=== PATIENT | female | born 1990 | race Hispanic/Latino ===

== ENCOUNTER → 2022-10-02 08:33 | Outpatient (CLI) | payer MEDICAID, SELFPAY ==
[2022-10-02 20:26] LABS: Add Manual Diff / Slide Review NO; Basophils Absolute Auto 100 /uL (0-100); Basophils Percent Auto 1.2 % (0-2); Eosinophils Absolute Auto 300 /uL (0-450); Eosinophils Percent Auto 2.8 % (2-4); Hematocrit 33.3 % (36-46); Hemoglobin 10.6 g/dL (12.0-16.0); Lymphocytes Absolute Auto 3600 /uL (1100-4500); Mean Corpuscular HGB Conc 31.8 % (30-36); Mean Corpuscular Hemoglobin 24.8 PG (26-34); Monocytes Absolute Auto 700 /uL (0-900); Monocytes Percent Auto 7.8 % (3-14); Neutrophils Absolute Auto 4600 /uL (1500-7000); Neutrophils Percent Auto 49.2 % (50-75); Platelet Count 302 X10^3/uL (150-400); Red Blood Cell Count 4.27 X10^6/uL (4.0-5.2); Red Cell Distribution Width 17.4 % (11.6-14.8); White Blood Cell Count 9.3 X10^3/uL (4.5-11.0)
[2022-10-02 20:39] LABS: Alanine Aminotransferase 21 IU/L (<35); Albumin 4.2 g/dL (3.5-5.0); Albumin Globulin Ratio 1.2 (1.0-2.8); Alkaline Phosphatase 90 U/L (38-126); Aspartate Aminotransferase 20 IU/L (14-36); BUN Creatinine Ratio 24.1 (6-22); Bilirubin Total 0.2 mg/dL (0.2-1.3); Blood Urea Nitrogen 14 mg/dL (7-17); Calcium 8.9 mg/dL (8.4-10.2); Carbon Dioxide 27 mmol/L (22-32); Chloride 102 mmol/L (98-107); Estimated Glomerular Filt Rate > 60 mL/min (>60); Globulin 3.4 g/dL (1.7-4.1); Glucose 94 mg/dL (70-100); HEMOLYSIS < 15 (0-50); Potassium 4.6 mmol/L (3.4-5.1); Sodium 137 mmol/L (137-145); Total Protein 7.6 g/dL (6.3-8.2)
[2022-10-02 21:07] LABS: TSH w/ Reflex to FT4 4.81 uIU/mL (0.47-4.68)
[2022-10-02 23:22] LABS: Free T4, Direct Thyroxine 0.75 ng/dL (0.78-2.19)
[2022-10-03 23:04] LABS: x Labcorp Estim. Avg Glu (eAG) 120 mg/dL (.); x Labcorp Hemoglobin A1c 5.8 % (4.8-5.6)
== END ==
PROVIDERS: PCP Physician Assistant; Visit Provider Physician Assistant
DX: R42 Dizziness and giddiness (principal)
CPT/HCPCS: 80053; 83036; 84439; 84443; 85025

== ENCOUNTER → 2024-02-01 13:55 | Outpatient (CLI) | payer OTHER, SELFPAY ==
[2024-02-01 18:45] LABS: Add Manual Diff / Slide Review NO; Basophils Absolute Auto 100 /uL (0-100); Basophils Percent Auto 0.6 % (0-2); Eosinophils Absolute Auto 100 /uL (0-450); Eosinophils Percent Auto 0.6 % (2-4); Hematocrit 40.1 % (36-46); Hemoglobin 13.4 g/dL (12.0-16.0); Lymphocytes Absolute Auto 3000 /uL (1100-4500); Lymphocytes Percent Auto 30.4 % (25-40); Mean Corpuscular HGB Conc 33.3 % (30-36); Mean Corpuscular Hemoglobin 29.1 PG (26-34); Mean Corpuscular Volume 87.3 fL (80-100); Monocytes Absolute Auto 500 /uL (0-900); Monocytes Percent Auto 5.3 % (3-14); Neutrophils Absolute Auto 6300 /uL (1500-7000); Neutrophils Percent Auto 63.1 % (50-75); Platelet Count 321 X10^3/uL (150-400); Red Blood Cell Count 4.59 X10^6/uL (4.0-5.2); Red Cell Distribution Width 15.9 % (11.6-14.8)
[2024-02-01 19:23] LABS: HEMOLYSIS 16 (0-50)
[2024-02-01 19:28] LABS: Iron 71 ug/dL (37-170)
[2024-02-01 19:38] LABS: Percent Iron Saturation 17 % (15-50); Total Iron Binding Capacity 428 ug/dL (265-497); Transferrin 371 mg/dL (206-381)
[2024-02-01 19:51] LABS: HCG Quantitative /Beta subunit 6410.5 mIU/mL
[2024-02-01 20:01] LABS: TSH w/ Reflex to FT4 2.87 uIU/mL (0.47-4.68)
[2024-02-03 19:12] LABS: Vitamin B12 454 pg/mL (239-931)
== END ==
PROVIDERS: PCP Physician Assistant; Visit Provider Family Medicine
DX: Z34.90 Encounter for supervision of normal pregnancy, unspecified, unspecified trimester (principal); E03.9 Hypothyroidism, unspecified; D64.9 Anemia, unspecified
CPT/HCPCS: 82607; 83540; 83550; 84443; 84702; 85025

== ENCOUNTER → 2024-08-28 09:15 | Outpatient (CLI) | payer MEDICAID, SELFPAY ==
[2024-08-28 19:25] LABS: Add Manual Diff / Slide Review NO; Basophils Absolute Auto 100 /uL (0-100); Basophils Percent Auto 0.6 % (0-2); Eosinophils Absolute Auto 300 /uL (0-450); Eosinophils Percent Auto 3.7 % (2-4); Hematocrit 37.6 % (36-46); Hemoglobin 12.4 g/dL (12.0-16.0); Lymphocytes Absolute Auto 2800 /uL (1100-4500); Lymphocytes Percent Auto 30.6 % (25-40); Mean Corpuscular Hemoglobin 28.1 PG (26-34); Mean Corpuscular Volume 85.2 fL (80-100); Monocytes Absolute Auto 500 /uL (0-900); Monocytes Percent Auto 5.5 % (3-14); Neutrophils Absolute Auto 5400 /uL (1500-7000); Neutrophils Percent Auto 59.6 % (50-75); Platelet Count 313 X10^3/uL (150-400); Red Blood Cell Count 4.41 X10^6/uL (4.0-5.2); Red Cell Distribution Width 15.2 % (11.6-14.8); White Blood Cell Count 9.1 X10^3/uL (4.5-11.0)
[2024-08-28 19:34] LABS: Alanine Aminotransferase 20 IU/L (<35); Albumin 4.2 g/dL (3.5-5.0); Albumin Globulin Ratio 1.3 (1.0-2.8); Alkaline Phosphatase 90 U/L (38-126); Aspartate Aminotransferase 24 IU/L (14-36); BUN Creatinine Ratio 16.9 (6-22); Bilirubin Total 0.5 mg/dL (0.2-1.3); Blood Urea Nitrogen 10 mg/dL (7-17); Calcium 9.5 mg/dL (8.4-10.2); Carbon Dioxide 25 mmol/L (22-32); Chloride 104 mmol/L (98-107); Cholesterol 209 mg/dL (140-199); Estimated Glomerular Filt Rate > 60 mL/min (>60); Globulin 3.3 g/dL (1.7-4.1); Glucose 100 mg/dL (70-100); HDL Cholesterol 67 mg/dL (40-60); HEMOLYSIS < 15 (0-50); LDL Cholesterol Calculated 115 mg/dL (<100); Potassium 4.6 mmol/L (3.4-5.1); Sodium 137 mmol/L (137-145); Total Protein 7.5 g/dL (6.3-8.2); Triglycerides 135 mg/dL (35-150)
[2024-08-28 19:37] LABS: Hemoglobin A1C% w Est Avg Glu 5.3 % (4.0-6.0)
[2024-08-28 20:01] LABS: TSH w/ Reflex to FT4 3.08 uIU/mL (0.47-4.68)
== END ==
PROVIDERS: PCP Physician Assistant; Visit Provider Physician Assistant
DX: Z13.6 Encounter for screening for cardiovascular disorders (principal); R73.9 Hyperglycemia, unspecified; E03.9 Hypothyroidism, unspecified; D64.9 Anemia, unspecified; R11.0 Nausea; R10.9 Unspecified abdominal pain; K59.00 Constipation, unspecified; R63.5 Abnormal weight gain
CPT/HCPCS: 80053; 80061; 83036; 84443; 85025

== ENCOUNTER 2025-05-01 10:27 | Inpatient (IN) | payer MEDICAID, SELFPAY ==
[2025-05-01] VITALS (23 sets, daily range): BP systolic 95–159; BP diastolic 55–82; PULSE 87–155; RESP 13–30; TEMP 36.6–37.1; O2SAT 92–100; BMI 36.2
--- NOTE | 2025-05-01 10:54 | ED_ITS ---
HPI - Abdominal Pain General Chief Complaint: Abdominal Pain Stated Complaint: throwing up for 5 days chest pain from throwing up Time Seen by Provider: 05/01/25 10:43 Source: patient, RN notes reviewed and old records reviewed Mode of arrival: Ambulatory Limitations: no limitations History of Present Illness HPI narrative: 35-year-old female no reported medical issues presents with complaint of epigastric pain with a little bit of heartburn, patient states she has been having intermittent vomiting for the past 5 days typically after she eats something about 30 minutes later she will throat up. She states pain has been intermittent but not persistent. She has felt a little bit bloated. She has had these episodes on and off in the past she saw her primary care physician about it August. She notes she has been constipated she had a bowel movement yesterday that she describes as small but passing flatus regularly. She denies any dysuria, urgency or frequency. Denies any vaginal bleeding or discharge patient does state lying flat makes it worse. Patient states no medical issues, she has had prior x2 no other prior surgeries. No daily medications. No known drug allergies. No tobacco, alcohol or recreational drugs. She presents today she has been having symptoms for the past few days and have not resolved. Related Data Home Medications ?Medication ?Instructions ?Recorded ?Confirmed No Known Home Medications 08/27/2402/12 Allergies Allergy/AdvReac Type Severity Reaction Status Date / Time ondansetron (From Zofran) Allergy Severe Chest Pain Verified 05/01/25 12:13 Review of Systems Review of Systems ROS Unobtainable: All systems reviewed & are unremarkable except as noted in HPI and below Patient History Social History Smoking Status: Never smoker Smoking Status: Never smoker Exam Narrative Exam Narrative: GENERAL: Alert and oriented x three, female in mild distress HEENT: Head normocephalic, atraumatic, EOMI, pupils reactive, face symmetric, moist mucous membranes NECK: Supple, full range of motion CARDIOVASCULAR: Regular rate and rhythm without murmurs, rubs or gallops. RESPIRATORY: Breath sounds equal bilaterally, no wheezes rales or rhonchi. ABDOMEN: Soft, nontender. Nondistended. Normoactive bowel sounds all 4 quadrants. No guarding or rebound, rigidity, no mass, no pulsatile mass. : No CVA tenderness EXTREMITIES: Normal range of motion, no clubbing or edema. Neurovascularly intact NEUROLOGICAL: Cranial nerves II through XII grossly intact. Moving all extremities SKIN: Warm, dry, no petechiae, no rashes or lesions. Initial Vital Signs Initial Vital Signs: Vital Signs Temperature 98.8 F 05/01/25 10:27 Pulse Rate 98 H 05/01/25 10:27 Respiratory Rate 16 05/01/25 10:27 Blood Pressure 121/72 05/01/25 10:27 Pulse Oximetry 98 05/01/25 10:27 Oxygen Delivery Method Room Air 05/01/25 10:27 Course Orders Ordered: ED Orders 05/01/25 11:06 US abdomen limited Stat 05/01/25 11:15 Complete Blood Count AUTO DIFF Stat Comprehensive Metabolic Panel Stat D Dimer Stat Lactate (Lactic Acid) Stat Lipase Stat Procalcitonin Stat Trop I [Troponin I] Stat 05/01/25 11:57 EKG-12 Lead Stat 05/01/25 12:00 Chest [XR chest 1V] Stat 05/01/25 13:25 Troponin I Stat 05/01/25 13:35 Blood Culture Stat Hydromorphone HCl (Hydromorphone Hcl 0.5 Mg/0.5 Ml Syringe) 1 mg IV Q2H PRN PRN Reason: Pain, Severe (7-10) Potassium Chloride 20 meq/ (Dextrose/Sodium Chloride) 1,010 mls @ 100 mls/hr IV CONT DOMENIC Ibuprofen (Ibuprofen 400 Mg Tablet) 400 mg PO Q4H PRN PRN Reason: Pain, Mild (1-3) Naloxone HCl (Naloxone 0.4 Mg/Ml Vial) 0.2 mg IV Q2MIN PRN PRN Reason: Opiate Reversal Oxycodone HCl (Oxycodone Ir 5 Mg Tablet) 5 mg PO Q3H PRN PRN Reason: Pain, Moderate (4-6) Discontinued Medications Magnesium Sulfate (Magnesium Sulfate) 2 gm in 50 mls @ 150 mls/hr IV NOW ONE Stop: 05/01/25 12:15 Last Infusion: 05/01/25 12:42 Dose: Infused Documented By: JE Co-signed By: CHUY Admin: 05/01/25 11:59 Dose: 150 mls/hr Documented By: RLDayron Co-signed By: PRERNA Sodium Chloride (Normal Saline 0.9%) 1,000 mls @ 1,000 mls/hr IV BOLUS ONE Stop: 05/01/25 12:55 Last Infusion: 05/01/25 12:50 Dose: Infused Documented By: Admin: 05/01/25 12:02 Dose: 1,000 mls/hr Documented By: RLC Sodium Chloride (Normal Saline 0.9%) 1,000 mls @ 1,000 mls/hr IV BOLUS ONE Stop: 05/01/25 13:47 Last Infusion: 05/01/25 13:40 Dose: Infused Documented By: Admin: 05/01/25 12:51 Dose: 1,000 mls/hr Documented By: RLC Piperacillin Sod/Tazobactam (Sod 4.5 gm/ Sodium Chloride) 100 mls @ 200 mls/hr IV NOW ONE Stop: 05/01/25 13:16 Last Infusion: 05/01/25 14:12 Dose: Infused Documented By: Admin: 05/01/25 13:31 Dose: 200 mls/hr Documented By: C Lorazepam (Lorazepam 2 Mg/Ml Inj) 0.5 mg IV NOW ONE Stop: 05/01/25 12:15 Last Admin: 05/01/25 12:26 Dose: 0.5 mg Documented By: C Methylprednisolone (Methylprednisolone Succ 125 Mg/2 Ml Vial) 125 mg IV NOW ONE Stop: 05/01/25 12:02 Last Admin: 05/01/25 12:25 Dose: 125 mg Documented By: RLC Morphine Sulfate (Morphine 4 Mg/Ml Inj) 4 mg IV NOW ONE Stop: 05/01/25 13:07 Last Admin: 05/01/25 13:10 Dose: 4 mg Documented By: RLC Ondansetron HCl (Ondansetron 4 Mg/2 Ml Inj) 4 mg IV NOW ONE Stop: 05/01/25 11:07 Last Admin: 05/01/25 11:45 Dose: 4 mg Documented By: RLC Pantoprazole Sodium (Pantoprazole 40 Mg Vial) 40 mg IV NOW ONE Stop: 05/01/25 11:07 Last Admin: 05/01/25 11:47 Dose: 40 mg Documented By: [facility] Vital Signs Vital signs: Vital Signs - 8 hr 05/01/25 10:27 05/01/25 11:41 05/01/25 11:45 Temperature 98.8 F Pulse Rate 98 H 87 Respiratory Rate 16 Blood Pressure 121/72 113/67 Pulse Oximetry 98 99 Oxygen Delivery Method Room Air 05/01/25 11:45 05/01/25 11:55 05/01/25 12:00 Temperature Pulse Rate 93 H 155 H 143 H Respiratory Rate 28 H 30 H Blood Pressure Pulse Oximetry 99 96 100 Oxygen Delivery Method Room Air 05/01/25 12:01 05/01/25 12:01 05/01/25 12:10 Temperature Pulse Rate 142 H Respiratory Rate 27 H Blood Pressure 154/81 H 159/82 H Pulse Oximetry 100 Oxygen Delivery Method 05/01/25 12:10 05/01/25 12:15 05/01/25 12:15 Temperature Pulse Rate 132 H 139 H Respiratory Rate 30 H 29 H Blood Pressure 154/74 H Pulse Oximetry 100 100 Oxygen Delivery Method 05/01/25 12:30 05/01/25 12:30 05/01/25 12:45 Temperature Pulse Rate 132 H Respiratory Rate 18 Blood Pressure 137/76 128/60 Pulse Oximetry 92 Oxygen Delivery Method 05/01/25 12:45 05/01/25 13:00 05/01/25 13:00 Temperature Pulse Rate 140 H 129 H Respiratory Rate 13 19 Blood Pressure 120/68 Pulse Oximetry 99 99 Oxygen Delivery Method 05/01/25 13:15 05/01/25 13:15 Temperature Pulse Rate 126 H Respiratory Rate 22 Blood Pressure 121/60 Pulse Oximetry 99 Oxygen Delivery Method MDM - Abdominal Pain Lab Data 05/01/25 11:15 05/01/25 11:15 Labs: Lab Results 05/01/25 05/01/25 Range/Units 11:15 13:25 WBC 10.2 (4.5-11.0) X10^3/uL RBC 4.48 (4.0-5.2) X10^6/uL Hgb 12.5 (12.0-16.0) g/dL Hct 38.0 (36-46) % MCV 84.7 (80-100) fL MCH 27.9 (26-34) PG MCHC 33.0 (30-36) % RDW 15.7 H (11.6-14.8) % Plt Count 295 (150-400) X10^3/uL Neut % (Auto) 63.5 (50-75) % Lymph % (Auto) 29.0 (25-40) % [place] % (Auto) 4.8 (3-14) % Eos % (Auto) 2.0 (2-4) % Baso % (Auto) 0.7 (0-2) % Neut # (Auto) 6500 (8828-7155) /uL Lymph # (Auto) 3000 (2839-9495) /uL [place] # (Auto) 500 (0-900) /uL Eos # (Auto) 200 (0-450) /uL Baso # (Auto) 100 (0-100) /uL D-Dimer 363 (<500) ng/ml Sodium 136 L (137-145) mmol/L Potassium 4.1 (3.4-5.1) mmol/L Chloride 104 (98-107) mmol/L Carbon Dioxide 24 (22-32) mmol/L BUN 7 (7-17) mg/dL Creatinine 0.59 (0.52-1.04) mg/dL Estimated GFR > 60 (>60) mL/min BUN/Creatinine Ratio 11.9 (6-22) Glucose 105 H (70-99) mg/dL Lactate 1.4 (0.7-2.1) mmol/L Calcium 9.3 (8.4-10.2) mg/dL Total Bilirubin 0.4 (0.2-1.3) mg/dL AST 56 H (14-36) IU/L ALT 79 H (<35) IU/L Alkaline Phosphatase 95 (38-126) U/L Troponin I < 0.012 < 0.012 (0.01-0.034) ng/mL Total Protein 8.0 (6.3-8.2) g/dL Albumin 4.5 (3.5-5.0) g/dL Globulin 3.5 (1.7-4.1) g/dL Albumin/Globulin Ratio 1.3 (1.0-2.8) Lipase 32 (23-300) U/L Procalcitonin 0.069 (<0.5) ng/mL Point of care testing: Point of Care Testing Test Results Negative Urine Dip Bedside Urine Glucose Negative Bedside Urine Bilirubin - Negative Bedside Urine Ketone - Negative Urine Specific [place] 1.025 Bedside Urine Occult Blood - Negative Bedside Urine pH 6.0 Bedside Urine Protein - Negative Bedside Urine Urobilinogen - Negative Bedside Urine Nitrite - Negative Bedside Urine Leukocytes - Negative Esterase MDM Narrative Medical decision making narrative: Labs labs show normal white count, hemoglobin and platelets, chemistries shows sodium 136 potassium of 4 1, LFTs are normal glucose is 105, AST ALT are 56 and 79 with a bilirubin of 0.4 lipase is 32. Patient had troponin as well as repeat troponin that were less than 0.012, dimer is negative at 363. Troponin was obtained as well as dimer after patient's tachycardia. Urine point of care is negative. Point of care is negative. EKG sinus rhythm with sinus arrhythmia rate 81 OR 140 QRS is 72 QTC 399, no ST- elevation or depression. Chest x-ray shows no acute cardiopulmonary abnormality. Right upper quadrant ultrasound, shows cholelithiasis with wall thickening pericholecystic fluid most suggestive cholelithiasis without developing cholecystitis appearance a stone within the cystic duct without biliary dilation maybe evaluated with a MRCP. Patient received Protonix and Zofran. Patient also received Solu-Medrol after potential allergic reaction versus adverse event to medication, magnesium. 1155: Patient received Zofran and Protonix and within min in her to developed sudden tachycardia and chest discomfort patient has a repeat EKG which does show prolongation of her QT has sinus rhythm but rate of 140. OR is 128 QRS is 72 QTC is 564. No acute ST-elevation or depression appreciated. Possible QT prolongation patient denies any swelling, erythema itching or other anaphylactic type reactions. Patient received fluids and magnesium heart rate was starting to trend down words before these were administered. Recheck on patient heart rate has trended down to the 120s but still said he is elevated 120-130 patient states she has a little bit better but still feels the tachycardia. She denies any swelling of her lips tongue or airway, no hives no itchiness she has some tightness in her chest no shortness of breath, no wheezing. No nausea or vomiting. Patient states she is starting develop a little bit of right upper quadrant pain but symptoms seem to be related to when she received her medications. Discussed findings with the patient she appears to have cholelithiasis with cholecystitis but also has stone within the cystic duct without biliary dilation. Would like to obtain MRCP but plan to monitor patient is a little bit longer to make sure she appears to be stable before going for MR. 1305 Discussed with cardiology, Dr. Rebollar: Reviewed findings suspect more of a reaction to her medication than an acute allergic reaction he agrees with magnesium, fluids and monitoring states half-life is 4-6 hours if symptoms continue to improve could observe overnight. Page out to Dr. Flores General surgery @ [phone] Martinez at [facility] @ [phone] eviewed findings from today. States this this would be general surgery issue would not recommend an ERCP for this patient. Would treat gallbladder disease. Spoke with Dr. Flores, [phone] he will come down and evaluate patient. Defers MRCP. Patient was evaluated he accepts for admission discussed findings patient's what appears to be reaction to medication she received earlier today heart rate is continuing to slowly improve most recently is at 114. Patient is feeling improved as well. Discharge Plan Departure Patient Disposition: Admitted As Inpatient Clinical Impression: Cholelithiasis with acute cholecystitis, Calculus of cystic duct, Adverse drug reaction Admit Date/Time: 05/01/25 14:27 Admit Provider: Matti Flores
--- NOTE | 2025-05-01 11:06 | DI.US.S_ITS ---
PROCEDURE: US ABDOMEN LIMITED INDICATIONS: epigastric pain, intermittent vomiting worse w/ food TECHNIQUE: Real-time scanning was performed of the abdominal and retroperitoneal organs, with image documentation. COMPARISON: None. FINDINGS: Liver: Liver is normal in size and homogeneous in echotexture. Gallbladder: Gallstones are present. Wall thickness is at the upper limits of normal measuring 3 mm. Mild pericholecystic fluid is present as well as positive sonographic Manjarrez sign. Biliary ducts: Intrahepatic bile ducts are non-dilated. Extrahepatic bile duct caliber measures 4 mm. There is appearance of stones in the cystic duct. Pancreas: Visualized portions of the pancreas are sonographically normal. Miscellaneous: No free abdominal fluid. IMPRESSION: Cholelithiasis with wall thickening and pericholecystic fluid most suggestive cholelithiasis with developing cholecystitis. There is appearance of stone within the cystic duct without biliary dilation. This may be further evaluated with MRCP. Dictated by: Juli James M.D. on 05/01/2025 at 11:49 Approved by: Juli James M.D. on 05/01/2025 at 11:53
[2025-05-01 11:24] LABS: Add Manual Diff / Slide Review NO; Hematocrit 38.0 % (36-46); Hemoglobin 12.5 g/dL (12.0-16.0); Lymphocytes Absolute Auto 3000 /uL (1100-4500); Mean Corpuscular HGB Conc 33.0 % (30-36); Mean Corpuscular Hemoglobin 27.9 PG (26-34); Mean Corpuscular Volume 84.7 fL (80-100); Platelet Count 295 X10^3/uL (150-400)
[2025-05-01 11:35] LABS: Alanine Aminotransferase 79 IU/L (<35); Albumin 4.5 g/dL (3.5-5.0); Albumin Globulin Ratio 1.3 (1.0-2.8); Alkaline Phosphatase 95 U/L (38-126); Blood Urea Nitrogen 7 mg/dL (7-17); Calcium 9.3 mg/dL (8.4-10.2); Carbon Dioxide 24 mmol/L (22-32); Chloride 104 mmol/L (98-107); Estimated Glomerular Filt Rate > 60 mL/min (>60); Globulin 3.5 g/dL (1.7-4.1); Glucose 105 mg/dL (70-99); HEMOLYSIS < 15 (0-50); Lipase 32 U/L (23-300); Potassium 4.1 mmol/L (3.4-5.1); Sodium 136 mmol/L (137-145); Total Protein 8.0 g/dL (6.3-8.2)
[2025-05-01] MEDS: ONDANSETRON 4 MG/2 ML INJ IV (11:45)
[2025-05-01] MEDS: PANTOPRAZOLE 40 MG VIAL IV (11:47)
--- NOTE | 2025-05-01 11:57 | EKG_ITS ---
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
--- NOTE | 2025-05-01 11:57 | EKG_ITS ---
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
[2025-05-01] MEDS: MAGNESIUM SULFATE 2 GM/50 ML PIGGYBACK IV (11:59)
--- NOTE | 2025-05-01 12:00 | DI.RAD.S_ITS ---
PROCEDURE: XR CHEST 1V INDICATIONS: sudden tachycardia after zofran/protonix TECHNIQUE: One view of the chest was acquired. COMPARISON: None. FINDINGS: Surgical changes and devices: None. Lungs and pleura: Lungs are clear. No pleural effusions or pneumothorax. Mediastinum: Mediastinal contours appear normal. Heart size is normal. Bones and chest wall: No suspicious bony lesions. Overlying soft tissues appear unremarkable. IMPRESSION: No acute cardiopulmonary abnormality is seen. Dictated by: Conrado Hair M.D. on 05/01/2025 at 12:31 Approved by: Conrado Hair M.D. on 05/01/2025 at 12:31
--- NOTE | 2025-05-01 12:00 | PC.NURSE ---
Pt noted to be tachycardic on tele w/HR 150s soon after protonix and zofran administration. Dr. Cullen called to bedside for re-evaluation. Verbal orders to initiate 1L NS bolus, 2g Magnesium and repeat EKG. RT called to bedside d/t increased WOB, chest pressure and patient c/o SOB. Pt's O2 sat 99% on pulse ox.
[2025-05-01] MEDS: SODIUM CHLORIDE 0.9% 1,000 ML 1000 ML IV ×2 (12:02→12:51)
[2025-05-01 12:17] LABS: Lactate (Lactic Acid) 1.4 mmol/L (0.7-2.1)
[2025-05-01] MEDS: methylPREDNISolone succ 125 MG/2 ML VIAL IV (12:25)
[2025-05-01 12:27] LABS: Troponin I < 0.012 ng/mL (0.01-0.034)
[2025-05-01 12:35] LABS: Procalcitonin 0.069 ng/mL (<0.5)
[2025-05-01] MEDS: MORPHINE 4 MG/ML INJ IV (13:10)
[2025-05-01] MEDS: PIPERACILLIN/TAZO 4.5 GM in SODIUM CHLORIDE 0.9% 100 ML IV (13:31)
[2025-05-01 13:56] LABS: Troponin I < 0.012 ng/mL (0.01-0.034)
--- NOTE | 2025-05-01 14:14 | P.HP_ITS ---
History of Present Illness History of Present Illness Date Patient Seen: 05/01/25 Chief complaint: throwing up for 5 days chest pain from throwing up Narrative: The patient is a 35-year-old female presents with proximally 5 days of pain. She describes the pain is a bill tightening in her epigastrium which radiates into her back. She has also been complaining of some substernal pressure sensation. The pain appears to be postprandial and has awakened her at night. She is unable to find a comfortable position and over time the pain will resolve. Associated with the pain is a nausea and vomiting. She denies any fevers or chills. This has been up problem she has had for several months and she sought medical advice in August. Apparently workup at that time was negative. She denies having an ultrasound done at that time. [facility] Social History Smoking Status: Never smoker Meds Home Medications and Allergies Home Medications ?Medication ?Instructions ?Recorded ?Confirmed ?Type No Known Home Medications 08/27/24 0402/12 History Allergies Allergy/AdvReac Type Severity Reaction Status Date / Time ondansetron (From Zofran) Allergy Severe Chest Pain Verified 05/01/25 12:13 Review of Systems Review of Systems ROS: Yes All systems reviewed with the patient and are negative except as otherwise documented Exam Vital Signs (past 8 hours): - 05/01/25 10:27 05/01/25 11:41 05/01/25 11:45 Temperature 98.8 F Pulse Rate 98 H 87 Respiratory Rate 16 Blood Pressure 121/72 113/67 Pulse Oximetry 98 99 Oxygen Delivery Method Room Air 05/01/25 11:45 05/01/25 11:55 05/01/25 12:00 Temperature Pulse Rate 93 H 155 H 143 H Respiratory Rate 28 H 30 H Blood Pressure Pulse Oximetry 99 96 100 Oxygen Delivery Method Room Air 05/01/25 12:01 05/01/25 12:01 05/01/25 12:10 Temperature Pulse Rate 142 H Respiratory Rate 27 H Blood Pressure 154/81 H 159/82 H Pulse Oximetry 100 Oxygen Delivery Method 05/01/25 12:10 05/01/25 12:15 05/01/25 12:15 Temperature Pulse Rate 132 H 139 H Respiratory Rate 30 H 29 H Blood Pressure 154/74 H Pulse Oximetry 100 100 Oxygen Delivery Method 05/01/25 12:30 05/01/25 12:30 05/01/25 12:45 Temperature Pulse Rate 132 H Respiratory Rate 18 Blood Pressure 137/76 128/60 Pulse Oximetry 92 Oxygen Delivery Method 05/01/25 12:45 05/01/25 13:00 05/01/25 13:00 Temperature Pulse Rate 140 H 129 H Respiratory Rate 13 19 Blood Pressure 120/68 Pulse Oximetry 99 99 Oxygen Delivery Method 05/01/25 13:15 05/01/25 13:15 Temperature Pulse Rate 126 H Respiratory Rate 22 Blood Pressure 121/60 Pulse Oximetry 99 Oxygen Delivery Method Oxygen Delivery Method Room Air Narrative Exam Narrative: The patient is alert and oriented x3 Neck is supple Lungs are clear to auscultation bilaterally Cardiac reveals a rapid rate regular rhythm without murmurs rubs or gallops Abdomen is soft with mild epigastric and right upper quadrant tenderness without guarding or rigidity. Bowel sounds are active. Patient has a negative Manjarrez's sign. Extremities reveal full range of motion Neuro is grossly intact Objective Imaging US - abdomen: Radiologist's impression: [place] [address] Ultrasound Report Signed Patient: Kalee Vega MR#: [id number] : 1990 Acct:[id number] Age/Sex: 35 / F Date of Service: 05/01/25 Loc: ED Accession Number: [id number] Procedure: US abdomen limited Ordering Provider: Grecia Cullen D.O. PROCEDURE: US ABDOMEN LIMITED INDICATIONS: epigastric pain, intermittent vomiting worse w/ food TECHNIQUE: Real-time scanning was performed of the abdominal and retroperitoneal organs, with image documentation. COMPARISON: None. FINDINGS: Liver: Liver is normal in size and homogeneous in echotexture. Gallbladder: Gallstones are present. Wall thickness is at the upper limits of normal measuring 3 mm. Mild pericholecystic fluid is present as well as positive sonographic Manjarrez sign. Biliary ducts: Intrahepatic bile ducts are non-dilated. Extrahepatic bile duct caliber measures 4 mm. There is appearance of stones in the cystic duct. Pancreas: Visualized portions of the pancreas are sonographically normal. Miscellaneous: No free abdominal fluid. IMPRESSION: Cholelithiasis with wall thickening and pericholecystic fluid most suggestive cholelithiasis with developing cholecystitis. There is appearance of stone within the cystic duct without biliary dilation. This may be further evaluated with MRCP. Dictated by: Juli James M.D. on 05/01/2025 at 11:49 Approved by: Juli James M.D. on 05/01/2025 at 11:53 Labs 05/01/25 11:15 05/01/25 11:15 Labs: Laboratory Results - last 24 hr 05/01/25 05/01/25 11:15 13:25 WBC 10.2 RBC 4.48 Hgb 12.5 Hct 38.0 MCV 84.7 MCH 27.9 MCHC 33.0 RDW 15.7 H Plt Count 295 Neut % (Auto) 63.5 Lymph % (Auto) 29.0 [place] % (Auto) 4.8 Eos % (Auto) 2.0 Baso % (Auto) 0.7 Neut # (Auto) 6500 Lymph # (Auto) 3000 [place] # (Auto) 500 Eos # (Auto) 200 Baso # (Auto) 100 D-Dimer 363 Sodium 136 L Potassium 4.1 Chloride 104 Carbon Dioxide 24 BUN 7 Creatinine 0.59 Estimated GFR > 60 BUN/Creatinine Ratio 11.9 Glucose 105 H Lactate 1.4 Calcium 9.3 Total Bilirubin 0.4 AST 56 H ALT 79 H Alkaline Phosphatase 95 Troponin I < 0.012 < 0.012 Total Protein 8.0 Albumin 4.5 Globulin 3.5 Albumin/Globulin Ratio 1.3 Lipase 32 Procalcitonin 0.069 Assessment & Plan Assessment and plan (1) Cholelithiasis with acute cholecystitis: Status: Acute (2) Tachycardia: Status: Acute Plan Plan to admit the patient for IV antibiotics as well as pain management. We will schedule the patient in the future for a laparoscopic cholecystectomy. Prior to scheduling surgery I will ask the hospitalist see the patient in reference to her tachycardia of unknown etiology. Time-Based Coding :: [TOTAL MINUTES] spent with patient and on the chart (including review of chart, obtaining history, exam, reviewing outside data, placing orders, documenting exam and treatment plan, and counseling patient) on [DATE]. 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
--- NOTE | 2025-05-01 16:12 | P.CONS_ITS ---
History of Present Illness Consult details Date Patient Seen: 05/01/25 Time Patient Seen: 16:13 Chief complaint: vomiting x 5 days, CP related to vomiting Reason for consult: Medical Pre-op evaluation due to CP Requesting provider: Matti Flores Narrative: HPI The patient is a 35-year-old female with a past medical history notable only for migraines who presents to the emergency room with postprandial right upper quadrant pain which has been present for quite some time and multiple episodes of emesis over the last 5 days. She reports that the right upper quadrant pain usually occurs after eating, will often wake her at night, and radiates to her back. She does not associated the pain with any specific food but reports that it occurs pretty much every time she eats. With the multiple episodes of vomiting, the patient developed an anterior chest discomfort without radiation or any associated symptoms. She has not had fever or chills, no diarrhea, or dysuria. She occasionally has some lightheadedness. The patient sought medical attention for the abdominal discomfort in August and by her report the evaluation was negative. She does not remember having an ultrasound or CT scan at that time. Evaluation in the emergency room notable for tachycardia to 116 beats per minute, mild elevation in the transaminases with AST 56 and ALT 79. Total bilirubin was normal and there is no leukocytosis. D-dimer was negative lipase and procalcitonin were normal. Abdominal ultrasound showed cholelithiasis with pericholecystic fluid concerning for developing cholecystitis. There also appears to be a stone within the cystic duct without biliary dilatation. Chest x-ray unremarkable. EKG showed normal sinus rhythm at 80 beats per minute without acute ST or T-wave changes. QTC was 399. Of note, when the patient was in the emergency room she received Zofran and Protonix and within several minutes she developed sudden tachycardia and chest discomfort. By report, a Repeat EKG showed a heart rate of 140, and a prolonged QTC of [address] changes. This EKG is not currently in the EMR so I am unable to personally read it. She received magnesium and methylprednisolone. Review of systems Fourteen system review of systems performed and pertinent positives and negatives are noted above. Otherwise review of systems is negative. Meds Home Medications and Allergies Home Medications ?Medication ?Instructions ?Recorded ?Confirmed ?Type No Known Home Medications 08/27/2404/20 History Allergies Allergy/AdvReac Type Severity Reaction Status Date / Time ondansetron (From Zofran) Allergy Severe Chest Pain Verified 05/01/25 12:13 Review of Systems Review of Systems Narrative: Fourteen system review of systems performed and pertinent positives and negatives are noted above under HPI. Otherwise review of systems negative. Exam Vital Signs (past 8 hours): - 05/01/25 10:27 05/01/25 11:41 05/01/25 11:45 Temperature 98.8 F Pulse Rate 98 H 87 Respiratory Rate 16 Blood Pressure 121/72 113/67 Pulse Oximetry 98 99 Oxygen Delivery Method Room Air Oxygen Flow Rate 05/01/25 11:45 05/01/25 11:55 05/01/25 12:00 Temperature Pulse Rate 93 H 155 H 143 H Respiratory Rate 28 H 30 H Blood Pressure Pulse Oximetry 99 96 100 Oxygen Delivery Method Room Air Oxygen Flow Rate 05/01/25 12:01 05/01/25 12:01 05/01/25 12:10 Temperature Pulse Rate 142 H Respiratory Rate 27 H Blood Pressure 154/81 H 159/82 H Pulse Oximetry 100 Oxygen Delivery Method Oxygen Flow Rate 05/01/25 12:10 05/01/25 12:15 05/01/25 12:15 Temperature Pulse Rate 132 H 139 H Respiratory Rate 30 H 29 H Blood Pressure 154/74 H Pulse Oximetry 100 100 Oxygen Delivery Method Oxygen Flow Rate 05/01/25 12:30 05/01/25 12:30 05/01/25 12:45 Temperature Pulse Rate 132 H Respiratory Rate 18 Blood Pressure 137/76 128/60 Pulse Oximetry 92 Oxygen Delivery Method Oxygen Flow Rate 05/01/25 12:45 05/01/25 13:00 05/01/25 13:00 Temperature Pulse Rate 140 H 129 H Respiratory Rate 13 19 Blood Pressure 120/68 Pulse Oximetry 99 99 Oxygen Delivery Method Oxygen Flow Rate 05/01/25 13:15 05/01/25 13:15 05/01/25 13:30 Temperature Pulse Rate 126 H Respiratory Rate 22 Blood Pressure 121/60 117/71 Pulse Oximetry 99 Oxygen Delivery Method Oxygen Flow Rate 05/01/25 13:30 05/01/25 13:59 05/01/25 13:59 Temperature Pulse Rate 126 H 121 H Respiratory Rate 17 14 Blood Pressure 110/64 Pulse Oximetry 98 97 Oxygen Delivery Method Oxygen Flow Rate 05/01/25 14:00 05/01/25 14:00 05/01/25 14:15 Temperature Pulse Rate 121 H Respiratory Rate 18 Blood Pressure 122/63 106/70 Pulse Oximetry 97 Oxygen Delivery Method Oxygen Flow Rate 05/01/25 14:15 05/01/25 14:30 05/01/25 14:30 Temperature Pulse Rate 122 H 118 H Respiratory Rate 16 19 Blood Pressure 109/56 L Pulse Oximetry 96 95 Oxygen Delivery Method Oxygen Flow Rate 05/01/25 14:45 05/01/25 14:45 05/01/25 15:00 Temperature Pulse Rate 121 H Respiratory Rate 25 H Blood Pressure 109/59 L 106/55 L Pulse Oximetry 95 Oxygen Delivery Method Oxygen Flow Rate 05/01/25 15:00 05/01/25 15:15 05/01/25 15:15 Temperature Pulse Rate 116 H 120 H Respiratory Rate 25 H 25 H Blood Pressure 103/55 L Pulse Oximetry 95 94 Oxygen Delivery Method Oxygen Flow Rate 05/01/25 15:38 Temperature 98.7 F Pulse Rate 116 H Respiratory Rate 19 Blood Pressure 97/55 L Pulse Oximetry 97 Oxygen Delivery Method Oxygen Flow Rate 0 Oxygen Delivery Method Room Air Oxygen Flow Rate 0 Narrative Exam Narrative: Alert and oriented, well-nourished, well-developed ill-appearing Oropharynx dry Regular rate and rhythm, no murmurs Clear to auscultation bilaterally, normal work of breathing Soft, nondistended, hypoactive bowel sounds, tender to palpation right upper quadrant Warm without edema, DP/PT 1+ Neuro grossly nonfocal Pleasant and cooperative Objective ECG Impression: Initial EKG normal sinus rhythm at 80 beats per minute the acute ST or T-wave changes. This was reviewed by me personally. Follow-up EKG showed tachycardia at 1:[address] or T-wave changes but with a new prolonged QTC at 564. This EKG is not in the EMR so this interpretation is provided by the ER physician Imaging Abdominal ultrasound: Radiologist's impression: Cholelithiasis with wall thickening and pericholecystic fluid most suggestive of cholelithiasis with developing cholecystitis. There is a stone within the cystic duct without biliary dilation. Chest x-ray: My impression: No acute cardiopulmonary abnormalities. Labs 05/01/25 11:15 05/01/25 11:15 Labs: Laboratory Results - last 24 hr 05/01/25 05/01/25 11:15 13:25 WBC 10.2 RBC 4.48 Hgb 12.5 Hct 38.0 MCV 84.7 MCH 27.9 MCHC 33.0 RDW 15.7 H Plt Count 295 Neut % (Auto) 63.5 Lymph % (Auto) 29.0 [place] % (Auto) 4.8 Eos % (Auto) 2.0 Baso % (Auto) 0.7 Neut # (Auto) 6500 Lymph # (Auto) 3000 [place] # (Auto) 500 Eos # (Auto) 200 Baso # (Auto) 100 D-Dimer 363 Sodium 136 L Potassium 4.1 Chloride 104 Carbon Dioxide 24 BUN 7 Creatinine 0.59 Estimated GFR > 60 BUN/Creatinine Ratio 11.9 Glucose 105 H Lactate 1.4 Calcium 9.3 Total Bilirubin 0.4 AST 56 H ALT 79 H Alkaline Phosphatase 95 Troponin I < 0.012 < 0.012 Total Protein 8.0 Albumin 4.5 Globulin 3.5 Albumin/Globulin Ratio 1.3 Lipase 32 Procalcitonin 0.069 PFSH Social History marital status: Tobacco & Substance Use Smoking Status: Never smoker Assessment & Plan Assessment and plan (1) Adverse drug reaction: Status: Acute (2) Tachycardia: Status: Acute (3) Calculus of cystic duct: Status: Acute (4) Cholelithiasis with acute cholecystitis: Status: Acute (5) Abdominal pain, right lateral: Status: Acute Assessment & Plan narrative: Cholelithiasis with acute cholecystitis Calculous of cystic duct Right upper quadrant pain * Continue Zosyn as ordered by Surgical Service * Continue as needed meds for pain and nausea * Avoid Zofran/Compazine/Phenergan due to allergic reaction with prolonged QT in the emergency room * Ativan (for anxiety) prn will also help the nausea * Anticipate patient will go to the operating room for lap slim in the next 24 hours * Multimodal pain med Adverse drug reaction Tachycardia Chest pain Prolonged QT The patient developed acute onset tachycardia and chest pain minutes after being given Zofran and Protonix. In addition, repeat EKG at that time showed an increase in the QTC from 399-564. There were no dynamic EKG changes. The chest pain and tachycardia are likely the result of the adverse drug reaction. Symptoms and tachy resolved with methylprednisolone and Protonix. * Avoid Zofran/Compazine/Phenergan due to prolonged QT * Repeat EKG in the morning Preoperative evaluation The patient has no history of cardiopulmonary disease and is low risk for any cardiopulmonary complications in the setting of laparoscopic cholecystectomy for acute cholecystitis. Diet: NPO DVT prophylaxis: Hold for now as patient is preop, Lovenox postoperatively if she will be in the hospital more than 24-48 hours. Discharge planning: Anticipate discharge home in 1-2 days Time-Based Coding :: [TOTAL MINUTES] spent with patient and on the chart (including review of chart, obtaining history, exam, reviewing outside data, placing orders, documenting exam and treatment plan, and counseling patient) on [DATE].
--- NOTE | 2025-05-01 16:56 | EKG_ITS ---
[address] [address] Test Date: 2025-05-01 Pat Name: Kalee Vega Department: Room: 222 Gender: Female Right Of Way Clearer: chapito : 1990 Requested By: Order Number: [id number] Reading MD: Haile Hess MD Measurements Intervals [place] Rate: 140 P: 53 GA: 128 QRS: 34 QRSD: 72 T: 23 QT: 370 QTc: 564 Interpretive Statements Critical Test Result: High HR , Long QTc Sinus tachycardia Electronically Signed On 05-02-2025 10:17:04 PST by Haile Hess MD
[2025-05-01] MEDS: POTASSIUM CHLORIDE 20 MEQ in DEXTROSE 5%-0.9% NS 1,000 ML 100 MEQ IV (16:57)
--- NOTE | 2025-05-01 18:10 | PC.NURSE ---
Pt arrived from ED at 1538, A&Ox4, c/o nausea but minimal 3/10 pain to abdomen. Tachycardic, hypotensive, but otherwise VSS on RA. MD aware. Lung sounds CTA, bowel sounds present, CMS+ throughout bilaterally. Pt placed on tele per orders, and oriented to room and call light. Bed in low position, call light within reach.
--- NOTE | 2025-05-01 18:55 | PC.NURSE ---
Entering this chart after assisting primary RN about her pt; called pharmacy about pt's history in ER with a reaction to Zofran; monitoring HR at 118-120 at this time; discussed all pt's HR and prior meds with pharmacist; will continue to monitor; anticipate pt's Zofran half life to over with in 1-2 hours; will update MD for any new symptoms or worsening tachycardia. Pt is resting well at this time; pt has tele in place; fish hatchery inspector will be informed of this information.
[2025-05-02 03:00] VITALS: BP 97/62; PULSE 104; RESP 20; TEMP 37.1; O2SAT 97
[2025-05-02] MEDS: DEXTROSE 5%-0.45NS W/KCL 20MEQ 1,000 ML 100 MEQ IV ×2 (04:12→16:10)
[2025-05-02 08:00] VITALS: BP 102/57; PULSE 96; RESP 16; TEMP 36.9; O2SAT 97
--- NOTE | 2025-05-02 08:42 | CM.DANOTE ---
Initial DCP Assessment Note. Review EMR and PT Interview. Met with patient at bedside to discuss discharge needs.PT is alert x 4 sitting up in bed. No acute distress. Independent. Lives with family.. Payor:?Medicaid? PCP: Summary & Plan:?35 y/o female arrived to ED via POV c/o abd pain. Admitted OBS. Dx. Acute Cholecystitis. Plan: OR. Discharge to home when improved. Discharge Planning/Care Management CM Discharge Assessment Start: 05/01/25 14:47 Freq: Status: Active Protocol: Document 05/02/25 08:40 (Rec: 05/02/25 08:41 [id number]) Discharge Planning Assessment Assigned Discharge Madison Gramajo RN CM Staffing Mgr Provider Dr. Plascencia Insurance Medicaid Advance Directives? No History Provided By Patient Prior Living House Arrangements Household Members spouse,children Type of Drives own vehicle transporation used prior to admit Independent with ADL Yes 's Is patient alert and Yes oriented? Barriers to No Discharge Discharge Plan Home Transportation Spouse Arrangement Referrals Initiated None needed Review Status In Process Please Provide Date 05/02/25 Initial DC Assessment Was Performed Next Review Type Continued Stay Review
--- NOTE | 2025-05-02 11:05 | PC.NURSE ---
Patient just given ativan and didlaudid. She complaind of headache and nausea. She will most likely being going to surgery Sunday. She is tolerating her ivf fine. She can now be on a clear liquid diet.
--- NOTE | 2025-05-02 11:16 | PM.PN.IH.1 ---
Subjective Subjective Date Patient Seen: 05/02/25 Interval history: The patient continues with nausea and vomiting. Her abdominal pain has resolved. Exam Vital Signs (past 8 hours): - 05/02/25 08:00 Temperature 98.4 F Pulse Rate 96 H Respiratory Rate 16 Blood Pressure 102/57 L Pulse Oximetry 97 Oxygen Flow Rate 0 Oxygen Delivery Method Room Air Oxygen Flow Rate 0 Narrative Exam Narrative: Lungs are clear to auscultation bilaterally Cardiac reveals a regular rate and rhythm Abdomen is obese, soft, nontender, with active bowel sounds Objective Labs 05/01/25 11:15 05/01/25 11:15 Labs: Laboratory Results - last 24 hr 05/01/25 05/01/25 11:15 13:25 WBC 10.2 RBC 4.48 Hgb 12.5 Hct 38.0 MCV 84.7 MCH 27.9 MCHC 33.0 RDW 15.7 H Plt Count 295 Neut % (Auto) 63.5 Lymph % (Auto) 29.0 [place] % (Auto) 4.8 Eos % (Auto) 2.0 Baso % (Auto) 0.7 Neut # (Auto) 6500 Lymph # (Auto) 3000 [place] # (Auto) 500 Eos # (Auto) 200 Baso # (Auto) 100 D-Dimer 363 Sodium 136 L Potassium 4.1 Chloride 104 Carbon Dioxide 24 BUN 7 Creatinine 0.59 Estimated GFR > 60 BUN/Creatinine Ratio 11.9 Glucose 105 H Lactate 1.4 Calcium 9.3 Total Bilirubin 0.4 AST 56 H ALT 79 H Alkaline Phosphatase 95 Troponin I < 0.012 < 0.012 Total Protein 8.0 Albumin 4.5 Globulin 3.5 Albumin/Globulin Ratio 1.3 Lipase 32 Procalcitonin 0.069 [facility] Social History marital status: household members: spouse and children Smoking Status: Never smoker alcohol intake: never Assessment & Plan Assessment and plan (1) Tachycardia: Status: Acute (2) Cholelithiasis with acute cholecystitis: Status: Acute (3) Adverse drug reaction: Status: Acute Plan It appears the patient may have had an adverse reaction to Zofran. Presently her rhythm is stable. She continues to have nausea we will try her on a scopolamine patch. We will allow the patient did take clear liquids and we will schedule the surgery in the next 48 hours. Time-Based Coding :: [TOTAL MINUTES] spent with patient and on the chart (including review of chart, obtaining history, exam, reviewing outside data, placing orders, documenting exam and treatment plan, and counseling patient) on [DATE]. PROFEE Conference Coordinator Document charge(s): Yes
[2025-05-02 12:00] VITALS: BP 100/69; PULSE 91; RESP 16; TEMP 36.6; O2SAT 94
[2025-05-02 16:00] VITALS: BP 106/67; PULSE 95; RESP 16; TEMP 36.7; O2SAT 98
[2025-05-02] MEDS: SCOPOLAMINE 1 PATCH TOP (16:09)
[2025-05-02] MEDS: PIPERACILLIN/TAZO 4.5 GM in SODIUM CHLORIDE 0.9% 100 ML IV (16:14)
--- NOTE | 2025-05-02 17:50 | PM.PN.1 ---
Subjective Subjective Interval history: 35-year-old female with underlying migraine disorder, class 1 obesity, who was admitted with acute cholecystitis. The hospitalist team was consulted for acute onset of tachycardia and prolonged QT after receiving ondansetron for nausea and vomiting. Today, she reports she continues to feel about the same overall. She remains painful and her right upper quadrant. The nausea overall is better. She states that surgery has been delayed until May 04. She is wondering if she is allowed to eat. There is a clear liquid tray in her room but not next to her bedside table. She is additionally wondering if she is supposed to have an MRI as that was discussed in the emergency department. Exam Vital Signs (past 8 hours): - 05/02/25 12:00 05/02/25 16:00 Temperature 97.8 F 98.0 F Pulse Rate 91 H 95 H Respiratory Rate 16 16 Blood Pressure 100/69 106/67 Pulse Oximetry 94 98 Oxygen Flow Rate 0 0 Oxygen Delivery Method Room Air Oxygen Flow Rate 0 Narrative Exam Narrative: GEN: Adult female, Alert and oriented x 3, NAD HEENT:NC, Face symmetric CHEST: Respiratory excursions symmetric, CTAB CV: RRR, no M/R/G ABD: Soft, mild to moderate right upper quadrant tenderness/ND, BT present in all 4 quadrants, body habitus limits exam EXTR: warm, well perfused, no C/C/E SKIN: warm and dry, no rash NEURO: Alert and oriented x 3, nonfocal Objective Labs 05/01/25 11:15 05/01/25 11:15 [facility] Social History marital status: household members: spouse and children Smoking Status: Never smoker alcohol intake: never Assessment & Plan Assessment & Plan narrative: 1. Cholelithiasis with acute cholecystitis Will initiate patient on Zosyn as she will not have surgery for another 36-48 hours. Additionally, she has a known calculus in the cystic duct. I reviewed with her that since she is having definitive surgery, she does require an MRCP. Presently, she is afebrile with a normal white blood cell count. She has no symptoms or signs of sepsis. 2. Tachycardia with prolonged QT after receiving IV Zofran and Protonix QTC has normalized and is back down to 0.35. This is felt to be secondary to an adverse drug reaction. 3. Hyponatremia Mild at 136. 4. Transaminitis Likely secondary to acute cholecystitis and ductal calculous Code status Full Prophylaxis Pat Score is 5. Will add Lovenox. This will need to be held before surgery Time-Based Coding :: [TOTAL MINUTES] spent with patient and on the chart (including review of chart, obtaining history, exam, reviewing outside data, placing orders, documenting exam and treatment plan, and counseling patient) on [DATE].
[2025-05-02] MEDS: PIPERACILLIN/TAZO 3.375 GM in SODIUM CHLORIDE 0.9% 100 ML IV (19:46)
[2025-05-02] MEDS: ENOXAPARIN 40 MG/0.4 ML SYRINGE SUBCUT (19:47)
[2025-05-02 20:00] VITALS: BP 103/52; PULSE 81; RESP 16; TEMP 36.7; O2SAT 99
[2025-05-03] VITALS: BP 97/60; PULSE 79; RESP 19; TEMP 36.4; O2SAT 97
[2025-05-03 04:00] VITALS: BP 100/56; PULSE 80; RESP 18; TEMP 37.1; O2SAT 100
[2025-05-03 04:25] LABS: Add Manual Diff / Slide Review NO; Hematocrit 30.7 % (36-46); Hemoglobin 10.3 g/dL (12.0-16.0); Lymphocytes Absolute Auto 3500 /uL (1100-4500); Mean Corpuscular HGB Conc 33.5 % (30-36); Mean Corpuscular Hemoglobin 28.6 PG (26-34); Mean Corpuscular Volume 85.5 fL (80-100); Platelet Count 255 X10^3/uL (150-400)
[2025-05-03 04:41] LABS: Alanine Aminotransferase 62 IU/L (<35); Albumin 3.5 g/dL (3.5-5.0); Albumin Globulin Ratio 1.3 (1.0-2.8); Alkaline Phosphatase 56 U/L (38-126); Blood Urea Nitrogen 5 mg/dL (7-17); Calcium 8.0 mg/dL (8.4-10.2); Carbon Dioxide 22 mmol/L (22-32); Chloride 107 mmol/L (98-107); Estimated Glomerular Filt Rate > 60 mL/min (>60); Globulin 2.8 g/dL (1.7-4.1); Glucose 114 mg/dL (70-99); HEMOLYSIS < 15 (0-50); Potassium 3.9 mmol/L (3.4-5.1); Sodium 137 mmol/L (137-145); Total Protein 6.3 g/dL (6.3-8.2)
[2025-05-03] MEDS: PIPERACILLIN/TAZO 3.375 GM in SODIUM CHLORIDE 0.9% 100 ML IV ×3 (06:56→23:27)
[2025-05-03 08:00] VITALS: BP 102/65; PULSE 91; RESP 16; TEMP 37.1; O2SAT 100
--- NOTE | 2025-05-03 10:44 | PC.NURSE ---
Patient given dilauidid for complaints of headache and r.upper quadrant pain. She is resting comfortably and tolerating clear liquids for breakfast.
--- NOTE | 2025-05-03 12:07 | P.PN_ITS ---
Subjective Subjective Date Patient Seen: 05/03/25 Interval history: Patient states the pain has resolved but she continues to have persistent and horrible nausea. She had a significant reaction to Zofran in the emergency department therefore can no longer take Zofran. We have tried her on scopolamine patch which has minimal effect and she is getting intermittent doses of Ativan to help her with her nausea. Exam Vital Signs (past 8 hours): - 05/03/25 08:00 Temperature 98.8 F Pulse Rate 91 H Respiratory Rate 16 Blood Pressure 102/65 Pulse Oximetry 100 Oxygen Flow Rate 0 Oxygen Delivery Method Room Air Oxygen Flow Rate 0 Narrative Exam Narrative: Alert and oriented Lungs are clear to auscultation bilaterally Cardiac reveals a regular rate and rhythm Abdomen is soft, nontender, with active bowel sounds Objective Labs 05/03/25 04:06 05/03/25 04:06 Labs: Laboratory Results - last 24 hr 05/03/25 04:06 WBC 11.1 H RBC 3.59 L Hgb 10.3 L Hct 30.7 L MCV 85.5 MCH 28.6 MCHC 33.5 RDW 15.8 H Plt Count 255 Neut % (Auto) 61.2 Lymph % (Auto) 31.7 [place] % (Auto) 5.9 Eos % (Auto) 0.7 L Baso % (Auto) 0.5 Neut # (Auto) 6800 Lymph # (Auto) 3500 [place] # (Auto) 700 Eos # (Auto) 100 Baso # (Auto) 100 Sodium 137 Potassium 3.9 Chloride 107 Carbon Dioxide 22 BUN 5 L Creatinine 0.55 Estimated GFR > 60 BUN/Creatinine Ratio 9.1 Glucose 114 H Calcium 8.0 L Total Bilirubin 0.3 AST 45 H ALT 62 H Alkaline Phosphatase 56 Total Protein 6.3 Albumin 3.5 Globulin 2.8 Albumin/Globulin Ratio 1.3 PFSH Social History marital status: household members: spouse and children Smoking Status: Never smoker alcohol intake: never Assessment & Plan Assessment and plan (1) Adverse drug reaction: Status: Acute (2) Cholelithiasis with acute cholecystitis: Status: Acute (3) Nausea: Status: Acute Plan Plan laparoscopic cholecystectomy tomorrow. Indications, planned procedure, and inherent risks were explained to the patient. She appears to understand and agrees to proceed as outlined. The patient will be NPO after midnight. Time-Based Coding :: [TOTAL MINUTES] spent with patient and on the chart (including review of chart, obtaining history, exam, reviewing outside data, placing orders, documenting exam and treatment plan, and counseling patient) on [DATE]. PROFEE Striping Machine Operator Document charge(s): Yes
[2025-05-03] MEDS: DEXTROSE 5%-0.45NS W/KCL 20MEQ 1,000 ML 100 MEQ IV ×2 (14:06→23:29)
[2025-05-03 16:00] VITALS: BP 111/68; PULSE 71
--- NOTE | 2025-05-03 19:24 | PM.PN.1 ---
Subjective Subjective Interval history: Chart reviewed. No new medical issues. Plan for surgery tomorrow morning. Hospitalist team will sign off given her relative dearth of chronic medical issues. Please contact the hospitalist team for any further concerns. Exam Vital Signs (past 8 hours): - 05/03/25 16:00 Pulse Rate 71 Blood Pressure 111/68 Oxygen Delivery Method Room Air Oxygen Flow Rate 0 Objective Labs 05/03/25 04:06 05/03/25 04:06 Labs: Laboratory Results - last 24 hr 05/03/25 04:06 WBC 11.1 H RBC 3.59 L Hgb 10.3 L Hct 30.7 L MCV 85.5 MCH 28.6 MCHC 33.5 RDW 15.8 H Plt Count 255 Neut % (Auto) 61.2 Lymph % (Auto) 31.7 [place] % (Auto) 5.9 Eos % (Auto) 0.7 L Baso % (Auto) 0.5 Neut # (Auto) 6800 Lymph # (Auto) 3500 [place] # (Auto) 700 Eos # (Auto) 100 Baso # (Auto) 100 Sodium 137 Potassium 3.9 Chloride 107 Carbon Dioxide 22 BUN 5 L Creatinine 0.55 Estimated GFR > 60 BUN/Creatinine Ratio 9.1 Glucose 114 H Calcium 8.0 L Total Bilirubin 0.3 AST 45 H ALT 62 H Alkaline Phosphatase 56 Total Protein 6.3 Albumin 3.5 Globulin 2.8 Albumin/Globulin Ratio 1.3 PFSH Social History marital status: household members: spouse and children Smoking Status: Never smoker alcohol intake: never Assessment & Plan Time-Based Coding :: [TOTAL MINUTES] spent with patient and on the chart (including review of chart, obtaining history, exam, reviewing outside data, placing orders, documenting exam and treatment plan, and counseling patient) on [DATE].
[2025-05-03 20:00] VITALS: BP 102/56; PULSE 72; RESP 16; TEMP 37.3; O2SAT 98
[2025-05-03 23:00] VITALS: BP 100/61; PULSE 69; RESP 17; TEMP 36.8; O2SAT 99
[2025-05-04] VITALS (18 sets, daily range): BP systolic 95–110; BP diastolic 45–78; PULSE 69–96; RESP 14–20; TEMP 36.2–37.1; O2SAT 90–99
--- NOTE | 2025-05-04 | PATH_ITS ---
[facility] Accession Number: [id number] No. of containers..01 Tissue . 01 Material submitted: . gallbladder - GALLBLADDER . 01 Diagnosis: GALLBLADDER, CHOLECYSTECTOMY: Mild chronic calculous cholecystitis and cholesterolosis. Benign lymph node of cystic duct also present. Negative for dysplasia or malignancy. MRV 05/07/2025 1454 Local . 01 Electronically signed: . Kristina Hector MD, Pathologist NPI- [id number] . 01 Gross description: . Received in formalin with two patient identifiers, and gallbladder is an 11.5 x 4.2 x 3.5 cm intact gallbladder. The stapled cystic duct margin is inked blue. The serosa is perez-brown and smooth with focal pinpoint hemorrhage. The mucosa is green with yellow stippling and a 0.2-0.5 cm thick wall. The lumen contains green, viscous bile and multiple green, multifaceted calculi up to 1.5 cm. There is a 0.8 cm possible lymph node adjacent to the cystic duct. Blood Bank Technician sections with entire possible lymph node, cystic duct margin, and gallbladder wall are submitted in A1. ([id number]) /MRV 05/05/2025 2105 Local . 01 Pathologist provided ICD-10: K80.10 . 01 CPT . 687178 Specimen Comment: A courtesy copy of this report has been sent to [facility] Pathology Performed at: [address] [address], [place], [place] [id number] MD Bang Arnold MD Phone: [phone]
[2025-05-04] MEDS: PIPERACILLIN/TAZO 3.375 GM in SODIUM CHLORIDE 0.9% 100 ML IV ×2 (08:44→14:00)
--- NOTE | 2025-05-04 09:26 | PC.NURSE ---
Pt doing well this morning. NPO for lap slim sometime today. Currently denies pain and nausea. IV fluids and IV abx running per order. Will continue to monitor.
--- NOTE | 2025-05-04 10:49 | P.PN_ITS ---
Subjective Subjective Date Patient Seen: 05/04/25 Interval history: Pain is minimal. The patient's nausea has improved Exam Vital Signs (past 8 hours): - 05/04/25 03:00 05/04/25 07:00 Temperature 98.2 F 98.7 F Pulse Rate 78 71 Respiratory Rate 17 14 Blood Pressure 95/45 L 103/55 L Pulse Oximetry 99 98 Oxygen Flow Rate 0 0 Oxygen Delivery Method Room Air Oxygen Flow Rate 0 Narrative Exam Narrative: Lungs are clear to auscultation bilaterally Cardiac reveals a regular rate and rhythm Abdomen is soft with some mild left lower quadrant tenderness. Bowel sounds are active Objective Labs 05/03/25 04:06 05/03/25 04:06 [facility] Social History marital status: household members: spouse and children Smoking Status: Never smoker alcohol intake: never Assessment & Plan Assessment and plan (1) Adverse drug reaction: Status: Acute (2) Cholelithiasis with acute cholecystitis: Status: Acute Plan Plan a laparoscopic cholecystectomy. Indications, planned procedure, and inherent risks were explained the patient last evening. She appeared to understand and agrees to proceed as outlined. The patient had no questions this morning. Time-Based Coding :: [TOTAL MINUTES] spent with patient and on the chart (including review of chart, obtaining history, exam, reviewing outside data, placing orders, documenting exam and treatment plan, and counseling patient) on [DATE]. PROFEE Registered Nurses Document charge(s): Yes
[2025-05-04] MEDS: DEXTROSE 5%-0.45NS W/KCL 20MEQ 1,000 ML 100 MEQ IV (11:15)
--- NOTE | 2025-05-04 13:22 | CM.DPNOTE ---
DCP note RENT AND MISCELLANEOUS REMITTANCE CLERK reviewed EMR per surgeon, plan for lap slim today per charge rn, no scheduled time as of rounds. tentatively added on in afternoon. no new needs identified per chart review at this time P: lap slim today and dc home when medically stable with likely OP f/u recommended. will continue to follow as needed in case any DCP needs should arise MARIO Varghese
--- NOTE | 2025-05-04 14:06 | SUR.OPER ---
Supine on padded OR bed, head on pillow, safety belt at thigh, left arm on padded on arm board,, Right arm secured on padded arm board <90 degrees abduction. Legs uncrossed. Padded footboard in place. Tape over blanket to secure lower legs.
[2025-05-04] MEDS: LACTATED RINGERS 1,000 ML 42 ML IV (14:51)
--- NOTE | 2025-05-04 14:54 | SUR.OPER ---
Supine on padded OR bed, head on pillow, safety belt at thigh, arms secured on padded arm boards <90 degrees abduction. Legs uncrossed. Padded footboard in place. Tape over blanket to secure lower legs. Final positioning done by provider
--- NOTE | 2025-05-04 16:16 | P.OP_ITS ---
Operative Date/Time/Diagnoses Date of procedure: 05/04/25 Time of procedure: 01:59 Pre-op diagnosis: Acute cholecystitis Post-op diagnosis: same Procedure & Clinicians Procedure: Laparoscopic cholecystectomy Same procedure(s) as scheduled: Yes Indications: The patient is a 35-year-old female presents with proximally 5 days of pain. She describes the pain is a bill tightening in her epigastrium which radiates into her back. She has also been complaining of some substernal pressure sensation. The pain appears to be postprandial and has awakened her at night. She is unable to find a comfortable position and over time the pain will resolve. Associated with the pain is a nausea and vomiting. She denies any fevers or chills. This has been up problem she has had for several months and she sought medical advice in August. Apparently workup at that time was negative. She denies having an ultrasound done at that time. Ultrasound revealed a thickened gallbladder with pericholecystic fluid and cholelithiasis. Surgeon: ED* *Temp Assisted?: No Anesthesia Type: General Operative Notes Findings: Patient had a mildly inflamed gallbladder with pericholecystic edema. Closure Type: primary Specimen(s): other Applied: none Estimated Blood Loss (mL): 20 Procedure in detail: After appropriate patient identification patient was placed on the procedure table in supine position. Upon achieving adequate general anesthesia the abdomen was prepped with ChloraPrep and draped in a sterile manner. After time- out was done, a midline incision was fashioned inferior to the umbilicus using a 15 blade knife. The incision was deepened through dermis and subcutaneous tissue the linea alba using Bovie electrocautery. The linea Alba was opened under direct vision using Bovie electrocautery and the abdomen was entered with an index finger. A [id number] of 0 Vicryl was placed in the divided linea Alba. A Christiansen catheter was inserted through the incision under direct vision and the balloon was insufflated. 5 mm trocars were placed in the epigastrium and right upper quadrant x2 under direct vision. The patient was positioned in the appropriate fashion and the fundus of the gallbladder was grasped with a grasping clamp. The infundibulum was identified and grasped with a grasping clamp. Dissection was carried and the hepatoduodenal ligament using blunt dissection with the Maryland dissector. Further dissection was carried bluntly using a sucker. During this dissection a small rent was made in the liver substance medial to the gallbladder. The cystic duct was identified and dissected using a [place] dissector. The cystic duct was very short, making the dissection of the cystic artery very difficult. The cystic duct was visualized but difficult to get a picture critical view. The cystic duct was clipped proximally with a locking hemoclip. One more titanium 3 more titanium clips were placed. The cystic duct was divided. Cystic artery was doubly clipped both proximally distally and divided. The gallbladder was dissected from the liver bed using Bovie electrocautery and placed into a sac inside the abdomen and brought out through the subumbilical incision. The Christiansen trocar was inserted and the balloon was reinflated. The operative site was inspected and hemostasis was assured the liver injury was inspected and hemostasis was ensured. The right upper quadrant was then copiously irrigated with sterile saline. All trocars were removed under direct vision. The previously placed linea Alba 0 Vicryl was tied thereby closing that incision. All skin incisions were anesthetized using 1% Marcaine with epinephrine and closed using 4-0 undyed Monocryl in interrupted subcuticular fashion. Steri- Strips and a sterile dressing was placed and procedure was terminated. The patient was transferred to the recovery room in good condition having sustained approximately 20 cc blood loss. Complications: none Post-operative Condition: stable Disposition: PACU
--- NOTE | 2025-05-04 18:01 | PC.NURSE ---
Pt returned from PACU at approx. 1735 following lap slim. Has 4 lap sites, mid-line site near [facility] has a dressing with bloody drainage around the outer edge. Pt is very drowsy and was satting in the mid-80's on RA if she wasn't reminded to take deep breaths so she was placed on 2L O2 and is now satting in the upper 90's. Will wean off O2 once pt is more alert. C/O 8/10 abd. pain but due to how drowsy pt is will medicate with 5mg oxy and ibuprofen. Will cont to monitor.
--- NOTE | 2025-05-04 18:04 | PC.NURSE ---
Patient back from surgery, she is resting comfortably, lap sites are all cdi. Patient is sleeping with ivf infusing.
[2025-05-04] MEDS: IBUPROFEN 400 MG TABLET PO (18:16)
[2025-05-04] MEDS: METOCLOPRAMIDE 10 MG/2 ML INJ IV (21:47)
[2025-05-05] VITALS (8 sets, daily range): BP systolic 92–107; BP diastolic 52–68; PULSE 62–79; RESP 15–18; TEMP 36.3–37; O2SAT 96–100
[2025-05-05] MEDS: DEXTROSE 5%-0.45NS W/KCL 20MEQ 1,000 ML 100 MEQ IV ×2 (03:03→14:31)
[2025-05-05] MEDS: IBUPROFEN 400 MG TABLET PO (08:34)
[2025-05-05] MEDS: SODIUM CHLORIDE 0.9% FLUSH 10 ML IV ×3 (08:35→11:37)
[2025-05-05] MEDS: SCOPOLAMINE 1 PATCH TOP (10:51)
--- NOTE | 2025-05-05 11:08 | P.PN_ITS ---
Subjective Subjective Date Patient Seen: 05/05/25 Interval history: The patient is describing significant incisional pain. She is sipping looked clear liquids. Exam Vital Signs (past 8 hours): - 05/05/25 09:00 Temperature 98.5 F Pulse Rate 70 Respiratory Rate 17 Blood Pressure 96/52 L Pulse Oximetry 97 Oxygen Flow Rate 0 Oxygen Delivery Method Nasal Cannula Oxygen Flow Rate 0 Narrative Exam Narrative: Lungs are clear to auscultation bilaterally Cardiac reveals a regular rate and rhythm Abdomen is distended, soft with diffuse tenderness. Dressing shows some serosanguineous drainage Objective Labs 05/03/25 04:06 05/03/25 04:06 [facility] Social History marital status: household members: spouse and children Smoking Status: Never smoker alcohol intake: never Assessment & Plan Assessment and plan (1) Adverse drug reaction: Status: Acute (2) Cholelithiasis with acute cholecystitis: Status: Acute (3) Postoperative abdominal pain: Status: Acute Plan We will adjust postoperative pain management to try to improve her incisional pain. We will encourage the patient to mobilize. We will add an incentive spirometer. Time-Based Coding :: [TOTAL MINUTES] spent with patient and on the chart (including review of chart, obtaining history, exam, reviewing outside data, placing orders, documenting exam and treatment plan, and counseling patient) on [DATE]. PROFEE Me[employer] Whe[employer] Driver Document charge(s): Yes
[2025-05-05] MEDS: METOCLOPRAMIDE 10 MG/2 ML INJ IV ×2 (11:37→18:55)
[2025-05-05] MEDS: ACETAMINOPHEN 325 MG TABLET 650 MG PO (11:37)
[2025-05-05] MEDS: HYDROmorphone 2 MG/ML SYRINGE IV ×4 (11:37→17:55)
--- NOTE | 2025-05-05 12:06 | CM.DPNOTE ---
DCP Note X RAY NURSE reviewed EMR per RN report, plan is to advance diet. on clear liquids now. having some incision pain. no new CM needs identified at this time P: Dc home with family support and OP f/u when able to tolerate general diet. ALEYDA pending. will continue to follow closely should any DCP needs arise MARIO Varghese
[2025-05-05] MEDS: PROCHLORPERAZINE 10 MG/2 ML VIAL 5 MG IV (17:17)
[2025-05-06] MEDS: DEXTROSE 5%-0.45NS W/KCL 20MEQ 1,000 ML 100 MEQ IV ×2 (00:31→11:33)
[2025-05-06] MEDS: IBUPROFEN 400 MG TABLET PO ×5 (00:41→20:14)
[2025-05-06 04:25] VITALS: BP 99/52; PULSE 77; RESP 16; TEMP 36.9; O2SAT 100
[2025-05-06] MEDS: ACETAMINOPHEN 325 MG TABLET 650 MG PO ×4 (05:04→22:37)
[2025-05-06 05:12] LABS: Add Manual Diff / Slide Review NO; Hematocrit 30.7 % (36-46); Hemoglobin 10.2 g/dL (12.0-16.0); Lymphocytes Absolute Auto 2700 /uL (1100-4500); Mean Corpuscular HGB Conc 33.2 % (30-36); Mean Corpuscular Hemoglobin 28.5 PG (26-34); Mean Corpuscular Volume 85.8 fL (80-100); Platelet Count 254 X10^3/uL (150-400)
[2025-05-06 05:23] LABS: Alanine Aminotransferase 223 IU/L (<35); Albumin 3.5 g/dL (3.5-5.0); Albumin Globulin Ratio 1.3 (1.0-2.8); Alkaline Phosphatase 66 U/L (38-126); Calcium 8.1 mg/dL (8.4-10.2); Carbon Dioxide 24 mmol/L (22-32); Chloride 106 mmol/L (98-107); Estimated Glomerular Filt Rate > 60 mL/min (>60); Globulin 2.8 g/dL (1.7-4.1); Glucose 116 mg/dL (70-99); HEMOLYSIS < 15 (0-50); Lipase 26 U/L (23-300); Potassium 3.7 mmol/L (3.4-5.1); Sodium 137 mmol/L (137-145); Total Protein 6.3 g/dL (6.3-8.2)
[2025-05-06 05:24] LABS: Blood Urea Nitrogen 2 mg/dL (7-17)
[2025-05-06 08:00] VITALS: BP 97/59; PULSE 77; RESP 16; TEMP 37.2; O2SAT 96
[2025-05-06] MEDS: SODIUM CHLORIDE 0.9% FLUSH 10 ML IV (08:19)
--- NOTE | 2025-05-06 08:30 | PC.NURSE ---
Patient is distended, bt are present in r.upper and l.lower quadrants but hypoactive otherwise. We will ambulate patient several times today, she is not passing gas yet. Jose has been on a clear liquid diet, she denies nausea today and tolerated some apple juice. Will monitor progress throughout the day.
--- NOTE | 2025-05-06 09:11 | PC.NURSE ---
Addendum entered by Grecia Gardiner 05/06/25 15:53: 1545- Pt doing much better this afternoon. Started scheduled tylenol and ibuprofen per orders and pain has been very well controlled and pt hasn't required any IV opioids and only minimal PO oxy. Pt did a full lap around the unit and did very well, denied feeling lightheaded or dizzy or having increased pain. Dulcolax suppository administered per orders after pt ambulated and pt later reported she had a small watery BM. Pt eager to progress diet from clear liquids, after diet order changed pt was given 1/2 a turkey sandwich and advised how to call to order a dinner tray. Denied needing any opioid pain meds at this time. Will continue to monitor. Addendum entered by Grecia Gardiner 05/06/25 10:20: 1015- pt is very nauseated and vomiting small quantities of water, medicated with prn iv compazine. Original Note: Pt's abdomen is quite distended this morning. Bowel tones are present. Pt expressed some concern that she's still experiencing so much pain after surgery. States she has not passed any gas since having surgery on 05/04 and hasn't had a BM. States that she feels so distended and full that she doesn't have much appetite and is only tolerating small quantities of clear liquids. Will reach out to get bowel meds ordered and ensure that pt ambulates today. Partner is present in room and supportive to pt. C/O 5/10 pain to abdomen and medicated with ibuprofen and 5 oxy.
[2025-05-06] MEDS: PROCHLORPERAZINE 10 MG/2 ML VIAL 5 MG IV (10:07)
[2025-05-06 10:10] VITALS: BP 95/49; PULSE 79
--- NOTE | 2025-05-06 10:39 | PC.NURSE ---
Dr. Flores into see patient and thinks that she may need to be transferred to another hospital, as he states she might be leaking bile.
[2025-05-06 12:00] VITALS: BP 110/48; PULSE 72; RESP 15; TEMP 36.9; O2SAT 100
--- NOTE | 2025-05-06 12:10 | P.PN_ITS ---
Subjective Subjective Date Patient Seen: 05/06/25 Interval history: The patient is a 2nd day postop from a laparoscopic cholecystectomy for acute cholecystitis. Her pain is vastly improved today and is more manageable. She is tolerating clear liquids and is asking to have her diet advanced. She denies passing any flatus. Exam Vital Signs (past 8 hours): - 05/06/25 04:25 05/06/25 08:00 05/06/25 10:10 Temperature 98.5 F 98.9 F Pulse Rate 77 77 79 Respiratory Rate 16 16 Blood Pressure 99/52 L 97/59 L 95/49 L Pulse Oximetry 100 96 Oxygen Flow Rate 0 0 Oxygen Delivery Method Room Air Oxygen Flow Rate 0 Narrative Exam Narrative: Lungs are clear to auscultation bilaterally Cardiac reveals a regular rate and rhythm Abdomen is moderate distended, soft, with chidi-incisional tenderness. Bowel sounds are hypoactive Objective Labs 05/06/25 04:21 05/06/25 04:21 Labs: Laboratory Results - last 24 hr 05/06/25 04:21 WBC 10.9 RBC 3.58 L Hgb 10.2 L Hct 30.7 L MCV 85.8 MCH 28.5 MCHC 33.2 RDW 15.9 H Plt Count 254 Neut % (Auto) 66.7 Lymph % (Auto) 25.2 Crook % (Auto) 6.1 Eos % (Auto) 1.7 L Baso % (Auto) 0.3 Neut # (Auto) 7300 H Lymph # (Auto) 2700 Crook # (Auto) 700 Eos # (Auto) 200 Baso # (Auto) 0 Sodium 137 Potassium 3.7 Chloride 106 Carbon Dioxide 24 BUN 2 L Creatinine 0.59 Estimated GFR > 60 BUN/Creatinine Ratio 3.4 L Glucose 116 H Calcium 8.1 L Total Bilirubin 0.4 AST 183 H ALT 223 H Alkaline Phosphatase 66 Total Protein 6.3 Albumin 3.5 Globulin 2.8 Albumin/Globulin Ratio 1.3 Lipase 26 PFSH Social History marital status: household members: spouse and children Smoking Status: Never smoker alcohol intake: never Assessment & Plan Assessment and plan (1) Postoperative abdominal pain: Status: Acute (2) Adverse drug reaction: Status: Acute (3) Nausea: Status: Acute Plan I plan to advance the patient's diet today to regular and see how she does. Considering a Dulcolax suppository to see if we can get her to start passing flatus. Time-Based Coding :: [TOTAL MINUTES] spent with patient and on the chart (including review of chart, obtaining history, exam, reviewing outside data, placing orders, documenting exam and treatment plan, and counseling patient) on [DATE]. PROFEE Oil Well [employer] Tool Operator Document charge(s): Yes
[2025-05-06] MEDS: BISACODYL 10 MG SUPP PR (13:32)
--- NOTE | 2025-05-06 13:55 | CM.DPNOTE ---
DCP Continued: Reviewed EMR and team rounds for pt?s medical status. Per Surgery, pt tolerating clear liquid diet but bowel tones are hypoactive. Per RN, pt still requiring IV pain medications, abdomen is distended and per her conversation with Surgeon, possible transfer to higher level of care. Plan: Anticipating transfer to tertiary level of care. CM Team will continue to follow for coordination of discharge plans. OSMAR Thurman
[2025-05-06 19:44] VITALS: BP 100/59; PULSE 69; RESP 16; TEMP 36.9; O2SAT 99
[2025-05-06 23:33] VITALS: BP 97/51; PULSE 61; RESP 16; TEMP 36.7; O2SAT 98
[2025-05-07] MEDS: DEXTROSE 5%-0.45NS W/KCL 20MEQ 1,000 ML 100 MEQ IV (01:49)
[2025-05-07 04:12] VITALS: BP 100/54; PULSE 87; RESP 16; TEMP 36.8; O2SAT 98
[2025-05-07] MEDS: IBUPROFEN 400 MG TABLET PO ×2 (06:15→10:20)
[2025-05-07] MEDS: ACETAMINOPHEN 325 MG TABLET 650 MG PO ×2 (06:16→10:20)
[2025-05-07 08:17] VITALS: BP 108/72; PULSE 73; RESP 16; TEMP 36.8; O2SAT 100
--- NOTE | 2025-05-07 08:25 | PC.NURSE ---
Pt doing well this morning, has been tolerating a general diet since yesterday evening with no nausea or vomiting. Pain is well controlled with scheduled tylenol and ibuprofen with occasional prn oxy and currently 0/10. Abdomen soft and much less distended from yesterday AM, bowel tones present in all quadrants. Pt states she feels much better since diet was progressed and she's been able to have solid food. Pt is hopeful to possibly DC home today if provider feels it's appropriate.
--- NOTE | 2025-05-07 08:41 | PC.NURSE ---
Patient is feeling good this morning. She is not having any pain at this time and she is not nauseated. Patient is eating a regular breakfast and is hungry. She has ivf infusing into a new iv to l.forearm, tolerating this well. Four lap sites all are cdi, patient would like to take a shower today. Possible discharge home, will see what Surgeon sais this morning.
--- NOTE | 2025-05-07 10:42 | P.PN_ITS ---
Subjective Subjective Date Patient Seen: 05/07/25 Interval history: The patient is doing well. The nausea has completely resolved. Her abdominal pain is minimal compared to 2 days ago and is being managed by oral pain medication. She has tolerating a regular diet. She is passing flatus and stooling. Exam Vital Signs (past 8 hours): - 05/07/25 04:12 05/07/25 08:17 Temperature 98.3 F 98.3 F Pulse Rate 87 73 Respiratory Rate 16 16 Blood Pressure 100/54 L 108/72 Pulse Oximetry 98 100 Oxygen Flow Rate 0 Oxygen Delivery Method Room Air Oxygen Flow Rate 0 Narrative Exam Narrative: Alert and oriented x3 Lungs are clear to auscultation bilaterally Cardiac reveals a regular rate and rhythm Abdomen is soft, nontender, with hypoactive bowel sounds. There is some serosanguineous drainage on all 4 dressings. Objective Labs 05/06/25 04:21 05/06/25 04:21 [facility] Social History marital status: household members: spouse and children Smoking Status: Never smoker alcohol intake: never Assessment & Plan Assessment and plan (1) Postoperative abdominal pain: Status: Acute (2) Adverse drug reaction: Status: Acute (3) Tachycardia: Status: Acute (4) Cholelithiasis with acute cholecystitis: Status: Acute Plan Patient is improved from her laparoscopic cholecystectomy and will be discharged home today. She should follow up with a surgeon in the next 7-10 days. Time-Based Coding :: [TOTAL MINUTES] spent with patient and on the chart (including review of chart, obtaining history, exam, reviewing outside data, placing orders, documenting exam and treatment plan, and counseling patient) on [DATE]. PROFEE Vice President Of Nursing Document charge(s): Yes
--- NOTE | 2025-05-07 10:55 | PM.DS.IH.1 ---
History of Present Illness History of Present Illness Date Patient Seen: 05/07/25 Chief complaint: vomiting x 5 days, CP related to vomiting Narrative: The patient is a 35-year-old female presents with proximally 5 days of pain. She describes the pain is a bill tightening in her epigastrium which radiates into her back. She has also been complaining of some substernal pressure sensation. The pain appears to be postprandial and has awakened her at night. She is unable to find a comfortable position and over time the pain will resolve. Associated with the pain is a nausea and vomiting. She denies any fevers or chills. This has been up problem she has had for several months and she sought medical advice in August. Apparently workup at that time was negative. She denies having an ultrasound done at that time. Discharge Providers Provider Date of admission: 05/03/25 12:07 Discharge Date: 05/07/25 Primary care physician: Stephanie Plascencia PA-C Discharge provider: Matti Flores MD Summary Hospital Course Discharge Diagnosis: Acute cholecystitis Hospital Course: The patient was admitted on the 03 of May with acute cholecystitis. She had severe intractable nausea and vomiting. She was given Zofran in the emergency department which caused a Q on T phenomenon with significant tachycardia. Today hours was spent trying to manage her nausea without using Zofran. We scopolamine patch as well as Ativan. She underwent a laparoscopic cholecystectomy on 05/05. Her postop course was marked by significant pain and over the ensuing 48 hours we are able to get that under control using multimodal pain management. On the time of discharge she was tolerating a regular diet, passing flatus, and having loose bowel movements. Status at Discharge Cognitive/behavioral status at discharge: oriented Functional status at discharge: independent ambulation Overall status at discharge: patient is back to baseline Time Spent with Patient Time spent: Greater than 30 minutes Exam Vital Signs (past 8 hours): - 05/07/25 04:12 05/07/25 08:17 Temperature 98.3 F 98.3 F Pulse Rate 87 73 Respiratory Rate 16 16 Blood Pressure 100/54 L 108/72 Pulse Oximetry 98 100 Oxygen Flow Rate 0 Oxygen Delivery Method Room Air Oxygen Flow Rate 0 Narrative Exam Narrative: Alert and oriented x3 Lungs are clear to auscultation bilaterally Cardiac reveals a regular rate and rhythm Abdomen is soft, nontender, with active bowel sounds Incisions are clean without induration, erythema, discharge, or ecchymosis Objective Imaging US - abdomen: Radiologist's impression: Patient: Kalee Vega MR#: [id number] : 1990 Acct:[id number] Age/Sex: 35 / F Date of Service: 05/01/25 Loc: ED Accession Number: [id number] Procedure: US abdomen limited Ordering Provider: Grecia Cullen D.O. PROCEDURE: US ABDOMEN LIMITED INDICATIONS: epigastric pain, intermittent vomiting worse w/ food TECHNIQUE: Real-time scanning was performed of the abdominal and retroperitoneal organs, with image documentation. COMPARISON: None. FINDINGS: Liver: Liver is normal in size and homogeneous in echotexture. Gallbladder: Gallstones are present. Wall thickness is at the upper limits of normal measuring 3 mm. Mild pericholecystic fluid is present as well as positive sonographic Manjarrez sign. Biliary ducts: Intrahepatic bile ducts are non-dilated. Extrahepatic bile duct caliber measures 4 mm. There is appearance of stones in the cystic duct. Pancreas: Visualized portions of the pancreas are sonographically normal. Miscellaneous: No free abdominal fluid. IMPRESSION: Cholelithiasis with wall thickening and pericholecystic fluid most suggestive cholelithiasis with developing cholecystitis. There is appearance of stone within the cystic duct without biliary dilation. This may be further evaluated with MRCP. Dictated by: Juli James M.D. on 05/01/2025 at 11:49 Approved by: Juli James M.D. on 05/01/2025 at 11:53 Labs 05/06/25 04:21 05/06/25 04:21 [facility] Social History marital status: household members: spouse and children Smoking Status: Never smoker alcohol intake: never Discharge Assessment & Plan Assessment and Plan Assessment: Acute cholecystitis Adverse drug interaction Zofran Plan of Treatment: The patient will be discharged home today. She will be discharged on oxycodone 5 mg p.o. q.3 hours as needed pain. She was given instructions on no lifting more than 10 lb for 6 weeks, no driving while taking narcotics, and the fact that she may shower. She should follow up with the surgeon within the next 7-10 days. Discharge Plan Discharge Plan Patient Disposition: Home Discharge orders & Medications Prescriptions: New oxycodone 5 mg Tablet 5 mg PO Q3H PRN (Reason: Pain, Moderate (4-6)) Qty: 24 0RF No Action No Known Home Medications Follow up/Referrals: Stephanie Plascencia PA-C [Primary Care Provider, Medical] Diet/Activity/Treatments Diet: Diet as Tolerated Activity: No driving while taking narcotics. No lifting more than 10 lb for 6 weeks. Patient may shower. Visit Report/Discharge Packet Stand Alone Forms: [employer], Patient Portal/API, Stroke Signs & Symptoms, Influenza Vaccine Info, Notice of Privacy Practices, Inpatient vs Outpatient, Pneumococcal Vaccine Info, Pt. Rights & Responsibilities, Surgery Discharge Discharge Data Primary Care Provider: Stephanie Plascencia PROFEE Charge Codes Discharge inpatient/observation: [id number]
--- NOTE | 2025-05-07 11:06 | CM.DPC ---
DCP Discharge Home Per Surgeon, pt's pain is controlled and she is tolerating general diet and had bm and voided and medically stable to d/c home with family and outpt f/u in the next 7-10 days with [facility]. No identified barriers to discharge. Per RN, will provide discharge instructions and no concerns noted. MARIO Arora
== END 2025-05-07 12:40 | disposition home or self-care (01) | DRG 418 ==
LOC: ED 10:43 → AC 14:27
PROVIDERS: Admitting Provider Surgery Trauma Surgery; Emergency Provider Emergency Medicine; PCP Physician Assistant; Referring Provider Emergency Medicine; Visit Provider Surgery Trauma Surgery
PROC: 0FT44ZZ Resection of Gallbladder, Percutaneous Endoscopic Approach (ICD-10-PCS; CPT 47562; principal; 2025-05-04 13:00)
DX: K80.00 Calculus of gallbladder with acute cholecystitis without obstruction (principal); E87.1 Hypo-osmolality and hyponatremia; R00.0 Tachycardia, unspecified; R07.89 Other chest pain; R94.31 Abnormal electrocardiogram [ECG] [EKG]; E66.811 Obesity, class 1; T45.0X5A Adverse effect of antiallergic and antiemetic drugs, initial encounter; G89.18 Other acute postprocedural pain; Z68.30 Body mass index [BMI] 30.0-30.9, adult
CPT/HCPCS: 36415; 71045; 76705; 80053; 81003; 81025; 83605; 83690; 84145; 84484; 85025; 85379; 87040; 93005; 93010; 96365; 96367; 96375; 99284; G0378; J0780; J1100; J1171; J1650; J2060; J2250; J2272; J2405; J2470; J2543; J2704; J2765; J2919; J3010; J3475; J3480; J3490; J7030; J7042; J7050; J7120